=== PATIENT | male | born 1985 | race Caucasian/White ===

== ENCOUNTER → 2018-01-04 | Outpatient (CLI) | payer MEDICAID | END | disposition home or self-care (01) | LOC: CVU 12:23 | PROVIDERS: ATTEND Internal Medicine Cardiovascular Disease | DX: Z01.818 Encounter for other preprocedural examination (principal); I34.0 Nonrheumatic mitral (valve) insufficiency; I11.0 Hypertensive heart disease with heart failure; I50.9 Heart failure, unspecified | CPT/HCPCS: 93306 ==

== ENCOUNTER 2018-01-07 10:00 | Observation (INO) | payer MEDICAID ==
[~2018-01-07] VITALS: Ht 195.6 cm; Wt 67.4 kg
[2018-01-07 11:55] VITALS: BP 103/71
[2018-01-07] MEDS ORDERED: ONDANSETRON 4 MG TABLET ONE (12:48)
[2018-01-07] MEDS ORDERED: IVAB5TAB PO (12:56)
[2018-01-07] MEDS ORDERED: METO25TA91 PO (12:56)
[2018-01-07] MEDS ORDERED: FURO40TA6 PO (12:56)
[2018-01-07] MEDS ORDERED: MAGN400T26 PO (12:56)
[2018-01-07] MEDS ORDERED: SPIR25TA3 PO (12:56)
[2018-01-07 12:57] VITALS: BP 103/91
[2018-01-07] MEDS ORDERED: ONDANSETRON ODT 4 MG PO PRN ×2 (13:00→14:00)
[2018-01-07] MEDS ORDERED: PLEASE ENTER HEIGHT AND WEIGHT MC SCH (13:30)
[2018-01-07] MEDS ORDERED: DOCUSATE 100 MG CAPSULE PO PRN (14:00)
[2018-01-07] MEDS ORDERED: morphine SULFATE 10 MG/ML, 1ML IVPush PRN (14:00)
[2018-01-07] MEDS ORDERED: ACETAMINOPHEN 325 MG TABLET PO PRN (14:00)
[2018-01-07] MEDS ORDERED: ENOXAPARIN 40 MG/0.4 ML SQ SCH (14:00)
[2018-01-07] MEDS: SPIRONOLACTONE 25 MG TABLET PO SCH (15:50)
[2018-01-07] MEDS: FUROSEMIDE 40 MG TABLET PO SCH (15:51)
[2018-01-07 20:09] VITALS: BP 116/71
[2018-01-07] MEDS: SODIUM CHLORIDE FLUSH 10ML SYR IVF SCH (20:14)
[2018-01-07] MEDS ORDERED: IVABRADINE HCL 5 MG HOMEMEDPO SCH (21:00)
[2018-01-08 01:31] VITALS: BP 104/69
[2018-01-08 05:27] VITALS: BP 115/80
[2018-01-08] MEDS ORDERED: METOPROLOL SUCCINATE 25 MG TAB.ER.24H PO SCH (06:00)
[2018-01-08 08:00] VITALS: BP 113/84
[2018-01-08] MEDS: SODIUM CHLORIDE FLUSH 10ML SYR IVF SCH (08:51)
[2018-01-08] MEDS: FUROSEMIDE 40 MG TABLET PO SCH (08:52)
[2018-01-08] MEDS: SPIRONOLACTONE 25 MG TABLET PO SCH (08:53)
[2018-01-08] MEDS ORDERED: CAPTOPRIL 12.5 MG TABLET PO SCH (09:00)
[2018-01-08] MEDS ORDERED: CAPT12.52 PO (09:07)
[2018-01-08 09:19] LABS: BASOPHILS # (AUTO) 0.04 x10^3/uL (0-0.1); BASOPHILS % (AUTO) 1 % (0-1); EOSINOPHILS # (AUTO) 0.04 x10^3/uL (0-0.4); EOSINOPHILS % (AUTO) 1 % (1-7); LYMPHOCYTES # (AUTO) 2.47 x10^3/uL (1-3.4); LYMPHOCYTES % (AUTO) 44 % (22-44); MD NO; MEAN CORPUSCULAR HGB CONC 33.5 g/dL (33.2-36.2); MEAN CORPUSCULAR VOLUME 95.4 fL (81-97); MEAN PLATELET VOLUME 8.5 fL (7.4-10.4); MONOCYTES # (AUTO) 0.53 x10^3/uL (0.2-0.8); MONOCYTES % (AUTO) 9 % (2-9); NEUTROPHILS # (AUTO) 2.55 x10^3/uL (1.8-6.8); NEUTROPHILS % (AUTO) 45 % (42-75); PLATELET COUNT 177 x10^3/uL (130-400); RED BLOOD COUNT 4.73 x10^6/uL (4.38-5.82); RED CELL DISTRIBUTION WIDTH 13.3 % (9.4-14.8)
[2018-01-08 09:32] LABS: ALANINE AMINOTRANSFERASE 28 U/L (12-78); ALBUMIN 3.5 g/dL (3.4-5.0); ANION GAP 11 mmol/L (5-15); CALCIUM 9.1 mg/dL (8.5-10.1); CHLORIDE 107 mmol/L (98-107); CREATININE 1.36 mg/dL (0.7-1.3)
[2018-01-08 09:34] LABS: ALKALINE PHOSPHATASE 64 U/L (45-117); BILIRUBIN,TOTAL 1.6 mg/dL (0.2-1.0); TOTAL PROTEIN 6.5 g/dL (6.4-8.2)
[2018-01-08] MEDS ORDERED: MAGNESIUM OXIDE 400 MG TABLET PO SCH (15:00)
== END 2018-01-08 13:45 | disposition home or self-care (01) ==
LOC: INTOOBSV 11:27 → 5SO 11:27
PROVIDERS: ADMIT Family Medicine; ATTEND Family Medicine
DX: I42.9 Cardiomyopathy, unspecified (principal); I34.0 Nonrheumatic mitral (valve) insufficiency; I27.29 Other secondary pulmonary hypertension; B34.9 Viral infection, unspecified; R64 Cachexia; I27.81 Cor pulmonale (chronic); I50.22 Chronic systolic (congestive) heart failure; F17.210 Nicotine dependence, cigarettes, uncomplicated
CPT/HCPCS: 36415; 80053; 82565; 83735; 84100; 85025; 96372; G0378; J1650; Q0162